=== PATIENT | male | born 1985 | race Caucasian/White ===

== ENCOUNTER 2019-05-06 12:51 | Emergency (ER) | payer OTHER ==
[2019-05-06 12:55] VITALS: BP 116/70; PULSE 65; RESP 16; TEMP 97.9
[2019-05-06] MEDS ORDERED: HYDROmorphone 1 MG/ML 1 ML SYRINGE IVP STA (13:20)
--- NOTE | 2019-05-06 13:22 | ED ---
General Adult HPI - General Chief complaint: Fall Stated complaint: Leg Injury Time Seen by Provider: 05/06/19 13:10 Source: patient, family, EMS, RN notes reviewed Mode of arrival: EMS Limitations: no limitations - History of Present Illness Initial comments: Patient is a pleasant 33-year-old male presenting to the emergency Department with complaints of right ankle pain. Patient was approximately 11 feet high seen on the edge of the roof when he slipped and fell. Patient landed directly on his right ankle. Patient has no other areas of complaints or concerns. No head injury or loss of consciousness. No neck or back pain. No chest or abdominal pain. No dyspnea. Patient does have history of previous ankle injuries in the same spot. - Related Data Allergies Allergy/AdvReac Type Severity Reaction Status Date / Time No Known Allergies Allergy Verified 05/06/19 12:51 Review of Systems ROS Statement: Those systems with pertinent positive or pertinent negative responses have been documented in the HPI. ROS Other: All systems not noted in ROS Statement are negative. Constitutional: Denies: fever Eyes: Denies: eye pain ENT: Denies: ear pain Respiratory: Denies: dyspnea Cardiovascular: Denies: chest pain Endocrine: Denies: fatigue Gastrointestinal: Denies: abdominal pain Genitourinary: Denies: dysuria Musculoskeletal: Denies: back pain Skin: Denies: rash Neurological: Denies: weakness Past Medical History Past Medical History: No Reported History History of Any Multi-Drug Resistant Organisms: None Reported Past Surgical History: No Surgical Hx Reported Past Psychological History: ADD/ADHD Smoking Status: Current every day smoker Past Alcohol Use History: None Reported Past Drug Use History: Cocaine, Marijuana General Exam Limitations: no limitations General appearance: alert Head exam: Present: atraumatic, normocephalic Eye exam: Present: normal appearance, PERRL ENT exam: Present: normal oropharynx Neck exam: Present: normal inspection. Absent: tenderness Respiratory exam: Present: normal lung sounds bilaterally Cardiovascular Exam: Present: regular rate, normal rhythm Expanded Peripheral pulses: 2+: Dorsalis Pedis (R) GI/Abdominal exam: Present: soft. Absent: distended, tenderness, guarding Extremities exam: Present: tenderness (Moderate to severe swelling and tenderness right lateral malleolus. Minimal tenderness medial malleolus. Distally the extremity is neurovascularly intact.) Back exam: Present: normal inspection. Absent: vertebral tenderness Neurological exam: Present: alert. Absent: motor sensory deficit Psychiatric exam: Present: normal affect, normal mood Skin exam: Present: normal color Course Vital Signs 05/06/19 12:51 Temperature 97.9 F Pulse Rate 65 Respiratory 16 Rate Blood Pressure 116/70 O2 Sat by Pulse 98 Oximetry Procedures - Orthopedic Splinting/Casting Injury #1 Side: right Lower Extremity Injury Location: short leg Lower Extremity Immobilizer: posterior splint Medical Decision Making - Medical Decision Making Patient reevaluated and updated. - Radiology Data Radiology results: image reviewed (Right ankle x-ray positive for bimalleolar fracture on the right.) Disposition Clinical Impression: Fall, Closed right ankle fracture Disposition: HOME SELF-CARE Condition: Stable Instructions (If sedation given, give patient instructions): Ankle Fracture (ED) Additional Instructions: Please follow-up with orthopedics in the next couple of days for recheck. Prescription for crutches, no weightbearing right leg. Return for increased pain, swelling, other areas of concern. Is patient prescribed a controlled substance at d/c from ED?: No Referrals: Naren Rizo MD [STAFF PHYSICIAN] - 1-2 days Michael Hernandez MD [Medical Doctor] - 1-2 days Time of Disposition: 14:27
--- NOTE | 2019-05-06 13:39 | XR ---
Right ankle HISTORY: Trauma and pain 3 views the right ankle Comminuted intra-articular medial malleolar fracture shows minimal displacement. Nondisplaced distal fibular fracture is also present. No evident dislocation. There is overlying artifact. Soft tissue sw elling is present. IMPRESSION: Bimalleolar fractures as described.
[2019-05-06] MEDS ORDERED: ACET/COD 300 MG/30 MG STARTER PACK 6 TAB BTL PO STA (14:28)
== END 2019-05-06 14:39 | disposition home or self-care (01) ==
LOC: EC 12:51
DX: S82.841A Displaced bimalleolar fracture of right lower leg, initial encounter for closed fracture (principal); F17.200 Nicotine dependence, unspecified, uncomplicated; Z87.828 Personal history of other (healed) physical injury and trauma; W17.89XA Other fall from one level to another, initial encounter; Y92.89 Other specified places as the place of occurrence of the external cause
CPT/HCPCS: 73610; 99284; 29515; 96374; J1170